=== PATIENT | female | born 1970 | race Caucasian/White ===

== ENCOUNTER 2016-09-01 09:27 | Outpatient (CLI) | payer OTHER | END 2016-09-01 23:59 | DX: Z00.00 Encounter for general adult medical examination without abnormal findings (principal) ==

== ENCOUNTER 2017-03-30 15:09 | Outpatient (CLI) | payer OTHER ==
--- NOTE | 2017-03-31 09:05 | Ultrasound Report ---
PELVIC ULTRASOUND: 03/30/2017 CLINICAL INDICATION: Pelvic mass. COMPARISON: 08/06/2014 TECHNIQUE: Transabdominal pelvic ultrasound performed for global evaluation. Transvaginal pelvic ul trasound performed for detailed evaluation. Real-time scanning performed and static images obtained. FINDINGS: The uterus is anteverted, measuring 10.2 x 5.8 x 5.0 cm. The endometrial echo complex jorge sures 10 mm. A 1.3 cm anterior submucosal leiomyoma is noted. The right ovary measures 3.3 x 2.7 x 2.2 cm, and contains a 2-cm follicle. The left ovary measures 3.1 x 2.3 x 2.0 cm, and contains folli cles. No free fluid is present. IMPRESSION: SMALL SUBMUCOSAL LEIOMYOMA. BILATERAL OVARIAN FOLLICLES. NO ADNEXAL MASS. JOB #: [id number] EXT JOB #:[id number]
== END 2017-03-30 15:10 | disposition home or self-care (01) ==
LOC: DI 15:09
PROVIDERS: ATTEND Physician Assistant Medical
DX: D25.0 Submucous leiomyoma of uterus (principal); N83.8 Other noninflammatory disorders of ovary, fallopian tube and broad ligament
CPT/HCPCS: 76830; 76856

== ENCOUNTER 2017-08-23 07:46 | Outpatient (CLI) | payer OTHER ==
--- NOTE | 2017-08-24 17:48 | Mammography Report ---
DIGITAL SCREENING MAMMOGRAM: 08/23/2017 CLINICAL INDICATION: A 47-year-old with history of late childbearing, history of benign excisional biopsy bilateral breasts for screening. COMPARISON: 01/2015, 09/2012. TECHNIQUE: Routine CC and MLO projections were obtained of the breasts. FINDINGS: The breasts again demonstrate heterogeneously dense fibroglandular parenchyma bilaterally. There are possible new circumscribed nodules in the left upper outer posterior and right central retroareolar breast. Further evaluation with spot compression views and possible bilateral ultrasound is recommended. No suspicious clustered microcalcifications or regions of architectural distortion are identified. IMPRESSION: INCOMPLETE EXAMINATION. RECOMMENDATION: ADDITIONAL EVALUATION OF BOTH BREASTS ABOVE. BIRADS category: 0, incomplete. STANDARD QUALIFYING STATEMENTS 1. This examination was reviewed with the aid of Computed-Aided Detection (CAD). 2. A negative or benign imaging report should not delay biopsy if clinically suspicious findings are present. Consider surgical consultation if warranted. More than 5% of cancers are not identified by imaging. 3. Dense breasts may obscure an underlying neoplasm. TD: 08/24/2017 17:47
== END 2017-08-23 07:47 | disposition home or self-care (01) ==
LOC: DI 07:46
PROVIDERS: ATTEND Nurse Practitioner Obstetrics & Gynecology
DX: Z12.39 Encounter for other screening for malignant neoplasm of breast (principal); R92.8 Other abnormal and inconclusive findings on diagnostic imaging of breast
CPT/HCPCS: 77067

== ENCOUNTER 2017-09-06 10:59 | Outpatient (CLI) | payer OTHER ==
--- NOTE | 2017-09-06 12:39 | Ultrasound Report ---
LEFT BREAST ULTRASOUND: 09/06/2017 CLINICAL INDICATION: Persistent circumscribed nodule left upper outer quadrant. TECHNIQUE: Real-time scanning was performed with employee representative static images obtained. FINDINGS: Ultrasound of the left breast was performed. At the 2 o'clock position, approximately 5 cm from the nipple, there is a 2.2 x 2.2 x 1.2 cm simple cyst. No sonographically suspicious findings are identified. IMPRESSION: SIMPLE CYST, ACCOUNTING FOR THE MAMMOGRAPHIC ABNORMALITY. RECOMMENDATION: Routine annual screening unless otherwise clinically indicated. BIRADS CATEGORY 2 - BENIGN FINDINGS. TD: 09/06/2017 12:38
--- NOTE | 2017-09-06 17:28 | Mammography Report ---
DIGITAL DIAGNOSTIC BILATERAL MAMMOGRAM: 09/06/2017 CLINICAL INDICATION: Possible circumscribed nodules bilaterally. TECHNIQUE: Bilateral true lateral and spot compression views. COMPARISON: 08/23/2017, 01/24/2015, 09/26/2012. FINDINGS: The breasts again demonstrate heterogeneously dense fibroglandular parenchyma bilaterally. The possible nodule in the right central retroareolar breast dissipates evenly with additional compression. No underlying mass lesion or architectural distortion is seen. The circumscribed nodule in the left upper outer quadrant persists on additional compression, measuring 2.5 cm in diameter. No associated calcifications are seen. Please also refer to left breast ultrasound of the same day. IMPRESSION: BENIGN FINDINGS, WITH A SIMPLE CYST ON ULTRASOUND ACCOUNTING FOR THE CIRCUMSCRIBED NODULE IN THE LEFT BREAST. RESOLUTION OF THE POSSIBLE NODULE IN THE RIGHT BREAST. RECOMMENDATION: Routine annual screening unless otherwise clinically indicated. BIRADS category 2 benign findings. STANDARD QUALIFYING STATEMENTS 1. This examination was reviewed with the aid of Computed-Aided Detection (CAD). 2. A negative or benign imaging report should not delay biopsy if clinically suspicious findings are present. Consider surgical consultation if warranted. More than 5% of cancers are not identified by imaging. 3. Dense breasts may obscure an underlying neoplasm. TD: 09/06/2017 17:26
== END 2017-09-06 11:00 | disposition home or self-care (01) ==
LOC: DI 10:59
PROVIDERS: ATTEND Nurse Practitioner Obstetrics & Gynecology
DX: N60.02 Solitary cyst of left breast (principal)
CPT/HCPCS: 76642; 77066

== ENCOUNTER 2017-10-19 08:50 | Outpatient (CLI) | payer OTHER ==
[2017-10-19 13:02] LABS: BASOPHILS % (AUTO) 1.1 %; EOSINOPHILS % (AUTO) 1.1 %; HGB - HEMOGLOBIN 12.6 g/dL (12.0-16.0); LYMPHOCYTES % (AUTO) 24.5 %; MEAN CORPUSCULAR HEMOGLOBIN 30.7 pg (27.0-31.0); MEAN CORPUSCULAR HGB CONC 33.4 g/dL (32.0-36.0); MEAN CORPUSCULAR VOLUME 91.8 fL (81.0-99.0); MEAN PLATELET VOLUME 10.3 fL (7.9-10.8); MONOCYTES # (AUTO) 0.4 10^3/uL (0.0-1.0); NEUTROPHILS # (AUTO) 2.7 10^3/uL (1.5-6.6); NEUTROPHILS % (AUTO) 63.3 %; PLT - PLATELET COUNT 180 10^3/uL (130-450); RED CELL DISTRIBUTION WIDTH 15.1 % (12.0-15.0); WHITE BLOOD COUNT 4.2 x10^3/uL (4.8-10.8)
[2017-10-19 13:33] LABS: ALBUMIN 3.7 g/dL (3.2-5.5); ALBUMIN/GLOBULIN RATIO 1.3 (1.0-2.2); ALKALINE PHOSPHATASE 53 IU/L (42-121); ALT ALANINE AMINOTRANSFERASE 21 IU/L (10-60); AST ASPARTATE AMINOTRANSFERASE 25 IU/L (10-42); BILIRUBIN,TOTAL 0.3 mg/dL (0.2-1.0); BUN - BLOOD UREA NITROGEN 12 mg/dL (6-20); CALCIUM 8.7 mg/dL (8.5-10.3); CARBON DIOXIDE - CO2 25 mmol/L (21-32); CHLORIDE 107 mmol/L (101-111); CHOL/HDL RATIO 2.5 (<4.4); CHOLESTEROL 179 mg/dL; CREATININE 0.7 mg/dL (0.4-1.0); GFR - MDRD 90 (>89); GLUCOSE 80 mg/dL (70-100); HDL CHOLESTEROL 72 mg/dL; LDL CHOLESTEROL,CALCULATED 96 mg/dL; LDL/HDL RATIO 1.3 (<4.4); SODIUM 137 mmol/L (135-145); TOTAL PROTEIN 6.6 g/dL (6.7-8.2); VLDL CHOLESTEROL 11 mg/dL
[2017-10-20 16:00] LABS: HIV AG/AB 4TH GEN NON-REACTIVE (NON-REACTIVE)
== END 2017-10-19 08:51 | disposition home or self-care (01) ==
LOC: LAB.R 08:50
PROVIDERS: ATTEND Physician Assistant Medical
DX: Z00.00 Encounter for general adult medical examination without abnormal findings (principal); Z11.3 Encounter for screening for infections with a predominantly sexual mode of transmission
CPT/HCPCS: 80053; 80061; 83721; 84443; 85025; 87389

== ENCOUNTER 2018-07-14 08:00 | Outpatient (CLI) | payer OTHER ==
[2018-07-14 12:14] LABS: BASOPHILS % (AUTO) 0.8 %; EOSINOPHILS % (AUTO) 0.7 %; HGB - HEMOGLOBIN 13.8 g/dL (12.0-16.0); LYMPHOCYTES # (AUTO) 1.1 10^3/uL (1.5-3.5); LYMPHOCYTES % (AUTO) 21.5 %; MEAN CORPUSCULAR HEMOGLOBIN 31.1 pg (27.0-31.0); MEAN CORPUSCULAR VOLUME 91.4 fL (81.0-99.0); MEAN PLATELET VOLUME 9.8 fL (7.9-10.8); MONOCYTES # (AUTO) 0.4 10^3/uL (0.0-1.0); MONOCYTES % (AUTO) 8.1 %; NEUTROPHILS # (AUTO) 3.4 10^3/uL (1.5-6.6); NEUTROPHILS % (AUTO) 68.9 %; PLT - PLATELET COUNT 215 10^3/uL (130-450); RED BLOOD COUNT 4.42 10^6/uL (4.20-5.40); RED CELL DISTRIBUTION WIDTH 13.5 % (12.0-15.0); WHITE BLOOD COUNT 4.9 x10^3/uL (4.8-10.8)
== END 2018-07-14 08:01 | disposition home or self-care (01) ==
LOC: LAB.R 08:00
PROVIDERS: ATTEND Physician Assistant Medical
DX: F32.9 Major depressive disorder, single episode, unspecified (principal); F41.9 Anxiety disorder, unspecified; Z79.899 Other long term (current) drug therapy
CPT/HCPCS: 85025

== ENCOUNTER 2019-05-10 07:58 | Outpatient (CLI) | payer MEDICAID ==
--- NOTE | 2019-05-10 08:42 | Mammography Report ---
Reason: ROUTINE MAMMO Procedure Date: 05/10/2019 Accession Number: [id number] / [id number] Procedure: [facility] - Screening Mammo w/Varghese CPT Code: Final Report FULL RESULT: EXAM: Screening Mammo w/Varghese DATE: 05/10/2019 8:26 AM CLINICAL HISTORY: Screening encounter. History of late childbearing. History of benign right breast biopsy and benign left breast biopsy. TECHNIQUE: (B) - Bilateral CC and MLO views were obtained. COMPARISON: 09/06/2017 through 09/26/2012. PARENCHYMAL PATTERN: (D) - The breast(s) demonstrate(s) heterogeneously dense fibroglandular parenchyma. FINDINGS: There has been interval increase in a partially obscured hyperdense left upper outer quadrant mass which likely measures approximately 3.8 x 3.1 cm and resides 5.5 cm from the nipple, previously sonographically characterized as a simple cyst, therefore typically benign. There are no suspicious masses, calcifications, or areas of distortion. IMPRESSION: Benign findings. BI-RADS category 2. RECOMMENDATION: (ANNUAL) - Recommend routine annual screening mammography. BI-RADS CATEGORY: (2) - Benign Findings. STANDARD QUALIFYING STATEMENTS: 1. This examination was not reviewed with the aid of Computer-Aided Detection (CAD). 2. A negative or benign imaging report should not preclude biopsy if clinically suspicious findings are present. 3. Dense breasts may obscure an underlying neoplasm. 4. This examination was reviewed with the aid of 3D breast imaging (tomosynthesis).
== END 2019-05-10 07:59 | disposition home or self-care (01) ==
LOC: DI 07:58
PROVIDERS: ATTEND Obstetrics & Gynecology
DX: Z12.31 Encounter for screening mammogram for malignant neoplasm of breast (principal)
CPT/HCPCS: 77063; 77067

== ENCOUNTER 2020-02-18 07:13 | Outpatient (CLI) | payer MEDICAID ==
--- NOTE | 2020-02-18 16:51 | Ultrasound Report ---
PROCEDURE: Head or Neck Soft Tissue INDICATIONS: PAROTID SWELLING TECHNIQUE: Real time scanning was performed of the neck region of interest, with image documentation . COMPARISON: None. FINDINGS: No soft tissue neck abnormality seen bilaterally to indicate presence of abscess or malign grover. What appears to be a slightly prominent lymph node in the area of patient's current clinical co ncern measures only 4 x 5 x 5 mm medial to the parotid gland. The patient reports infected tooth with recent antibiotic treatment. IMPRESSION: The patient reports infected tooth with antibiotic treatment. What appears to be a minimally prominen t 4 x 5 x 5 mm lymph node is seen adjacent to the parotid gland in the area of current clinical bárbara rn. The structure appears to represent a slightly reactive lymph node. No abscess or malignant appear ing mass is found. Reviewed by: Drew Yusuf MD on 02/18/2020 4:49 PM PDT Approved by: Drew Yusuf MD on 02/18/2020 4:49 PM PDT Station ID: [id number]
== END 2020-02-18 07:14 | disposition home or self-care (01) ==
LOC: DI 07:13
PROVIDERS: ATTEND Nurse Practitioner
DX: R22.1 Localized swelling, mass and lump, neck (principal)
CPT/HCPCS: 76536